=== PATIENT | female | born 1965 | race Caucasian/White ===

== ENCOUNTER 2018-06-05 06:42 | Emergency (ER) | payer BC ==
[~2018-06-05] VITALS: Ht 154.9 cm; Wt 72.6 kg
--- NOTE | ~2018-06-05 | EKG ---
[place], [place] ELECTROCARDIOGRAM REPORT NAME: AUDRA BAUER UNIT #: [id number] ROOM: DOCTOR: EPIPHANY DRAFT REPORT BIRTHDATE: [birth year] [facility] Test Date: 2018-06-05 Test Time: 06:55:36 Pat Name: AUDRA BAUER Department: Room: Gender: F Washer Assembler: Krupa Ramirez : 1965 Requested By: CRISTOBAL ROSALES Order Number: [id number] Reading MD: Sunny Hogue MD Measurements Intervals [place] Rate: 96 P: 53 MA: 132 QRS: 60 QRSD: 79 T: 45 QT: 355 QTc: 449 Interpretive Statements Sinus rhythm Nonspecific ST T changes Electronically Signed On 06-06-2018 12:23:49 PST by Sunny Hogue MD CM:EKGRPT:ELECTROCARDIOGRAM REPORT [id number] CRISTOBAL TRAYLOR DRAFT REPORT CRISTOBAL ROSALES DO
[2018-06-05 07:08] LABS: BASO % 0.3 % (0.0-1.0); EOS % 0.4 % (1.0-4.0); HEMATOCRIT 43.8 % (37.0-47.0); HEMOGLOBIN 14.8 g/dl (12.0-16.0); LYMPH # 2.3 10*3/uL (1.3-4.4); LYMPH % 30.6 % (27.0-41.0); MEAN CELL VOLUME 89.6 fl (81.0-99.0); MEAN CORPUSCULAR HGB 30.3 pg (27.0-31.0); MEAN CORPUSCULAR HGB CONC 33.8 g/dl (33.0-37.0); MEAN PLATELET VOLUME 9.8 fl (9.6-12.3); MONO # 0.3 10*3/uL (0.1-1.0); MONO % 4.1 % (3.0-9.0); NEUT # 4.8 10*3/uL (2.3-7.9); NEUT % 64.3 % (47.0-73.0); PLATELET COUNT AUTOMATED 232 10*3/uL (130-400); RED BLOOD COUNT 4.89 10*6/uL (4.10-5.10); RED CELL DISTRI WIDTH 12.1 % (0-14.5); WHITE BLOOD COUNT 7.4 10*3/uL (4.8-10.8)
[2018-06-05 07:16] LABS: ACT PARTIAL THROMBO TIME 22.7 SECONDS (20.8-31.5)
[2018-06-05 07:27] LABS: ALBUMIN 3.6 gm/dl (3.1-4.5); ALKALINE PHOSPHATASE 74 U/L (45-117); BUN 12 mg/dl (7-24); CHLORIDE 111 mmol/L (98-107); CREATININE 0.91 mg/dL (0.55-1.02); POTASSIUM 3.3 mmol/L (3.5-5.1); SGOT/AST 18 IU/L (3-35); SGPT/ALT 23 U/L (12-78); SODIUM 142 mmol/L (136-145); TOTAL PROTEIN 7.4 gm/dL (6.4-8.2)
[2018-06-05 07:28] LABS: TROPONIN I < 0.015 ng/ml (<0.045)
== END 2018-06-05 07:46 | disposition home or self-care (01) ==
LOC: ED 06:42
PROVIDERS: Student in an Organized Health Care Education/Training Program
DX: I47.1 Supraventricular tachycardia (principal); E87.6 Hypokalemia

== ENCOUNTER 2021-11-18 13:19 | Emergency (ER) | payer OTHER ==
[~2021-11-18] VITALS: Ht 162.5 cm; Wt 68.0 kg
[2021-11-18 13:56] LABS: BASO % 0.4 % (0.0-1.0); EOS # 0.1 10*3/uL (0.0-0.4); EOS % 0.9 % (1.0-4.0); HEMATOCRIT 43.1 % (37.0-47.0); LYMPH # 4.3 10*3/uL (1.3-4.4); LYMPH % 44.9 % (27.0-41.0); MEAN CELL VOLUME 89.6 fl (81.0-99.0); MEAN CORPUSCULAR HGB 30.4 pg (27.0-31.0); MEAN CORPUSCULAR HGB CONC 33.9 g/dl (33.0-37.0); MEAN PLATELET VOLUME 10.4 fl (9.6-12.3); MONO # 0.5 10*3/uL (0.1-1.0); MONO % 5.5 % (3.0-9.0); NEUT # 4.6 10*3/uL (2.3-7.9); PLATELET COUNT AUTOMATED 285 10*3/uL (130-400); RED BLOOD COUNT 4.81 10*6/uL (4.10-5.10); RED CELL DISTRI WIDTH 11.9 % (0-14.5); WHITE BLOOD COUNT 9.6 10*3/uL (4.8-10.8)
[2021-11-18 14:12] LABS: ACT PARTIAL THROMBO TIME 25.9 SECONDS (20.0-32.1)
[2021-11-18 14:15] LABS: ALKALINE PHOSPHATASE 64 U/L (45-117); BUN 15 mg/dl (7-24); CHLORIDE 111 mmol/L (98-107); CREATININE 1.09 mg/dL (0.55-1.02); POTASSIUM 3.8 mmol/L (3.5-5.1); SGOT/AST 13 IU/L (3-35); SGPT/ALT 21 U/L (12-78); SODIUM 143 mmol/L (136-145)
[2021-11-18 14:19] LABS: LIPASE 64 U/L (73-393)
== END 2021-11-18 15:08 | disposition home or self-care (01) ==
LOC: ED 13:19
PROVIDERS: Emergency Medicine
DX: I47.1 Supraventricular tachycardia (principal)